=== PATIENT | female | born 1930 | race Two or more races ===

== ENCOUNTER 2017-03-13 11:07 | Outpatient (CLI) | payer OTHER | END 2017-03-13 15:26 | disposition home or self-care (01) | LOC: MRI 11:07 | DX: M51.14 Intervertebral disc disorders with radiculopathy, thoracic region (principal) | CPT/HCPCS: 72146 ==

== ENCOUNTER 2017-03-13 11:27 | Outpatient (CLI) | payer OTHER | END 2017-03-13 15:25 | disposition home or self-care (01) | LOC: RAD 11:27 | DX: M79.641 Pain in right hand (principal); M25.562 Pain in left knee ==

== ENCOUNTER → 2017-10-11 | Outpatient (CLI) | payer OTHER | END | disposition home or self-care (01) | LOC: NUCLEAR 10-04 08:00 | DX: I25.10 Atherosclerotic heart disease of native coronary artery without angina pectoris (principal) | CPT/HCPCS: 78452; 93017; A9500; J0153 ==

== ENCOUNTER 2017-11-12 12:07 | Outpatient (CLI) | payer OTHER | END 2017-11-12 12:30 | disposition home or self-care (01) | LOC: SONOGRAMA 12:07 | DX: E04.1 Nontoxic single thyroid nodule (principal) ==

== ENCOUNTER 2018-04-15 19:46 | Emergency (ER) | payer OTHER ==
[~2018-04-15] VITALS: Ht 162.6 cm; Wt 70.3 kg
[2018-04-15] MEDS ORDERED: ADULT ASPIRIN81 MG (20:16)
[2018-04-15] MEDS ORDERED: DEXILANT30 MG (20:17)
[2018-04-15] MEDS ORDERED: NORVASC2.5 M1 (20:17)
[2018-04-15] MEDS ORDERED: CLOPIDOGREL BIS75 MG (20:18)
[2018-04-15] MEDS ORDERED: SIMVASTATIN20 MG (20:18)
[2018-04-15] MEDS ORDERED: TOPROL XL50 M1 (20:19)
[2018-04-15] MEDS ORDERED: LOSARTAN-HCTZ1 EACH PO (23:36)
== END 2018-04-15 23:36 | disposition home or self-care (01) ==
LOC: ER 19:46
DX: I16.1 Hypertensive emergency (principal); I10 Essential (primary) hypertension; R51 Headache

== ENCOUNTER 2018-11-26 09:34 | Outpatient (CLI) | payer OTHER ==
[~2018-11-26 09:34] MED LIST: ADULT ASPIRIN81 MG; CLOPIDOGREL BIS75 MG; DEXILANT30 MG; LOSARTAN-HCTZ1 EACH PO; NORVASC2.5 M1; SIMVASTATIN20 MG; TOPROL XL50 M1
== END 2018-11-26 09:36 | disposition home or self-care (01) ==
LOC: RX STUDY 09:34
DX: K59.09 Other constipation (principal); K21.9 Gastro-esophageal reflux disease without esophagitis

== ENCOUNTER 2019-09-24 15:18 | Outpatient (CLI) | payer OTHER | END 2019-09-24 16:00 | disposition home or self-care (01) | LOC: OFIC 805 15:18 | PROVIDERS: ATTEND Otolaryngology | DX: R09.81 Nasal congestion (principal); J30.89 Other allergic rhinitis; S09.20XA Traumatic rupture of unspecified ear drum, initial encounter; H91.8X3 Other specified hearing loss, bilateral ==

== ENCOUNTER 2019-10-16 13:09 | Outpatient (CLI) | payer OTHER | END 2019-10-16 13:50 | disposition home or self-care (01) | LOC: OFIC 805 13:09 | PROVIDERS: ATTEND Otolaryngology | DX: J30.89 Other allergic rhinitis (principal); R09.81 Nasal congestion; H91.8X3 Other specified hearing loss, bilateral ==

== ENCOUNTER → 2020-02-05 | Outpatient (CLI) | payer OTHER | END | disposition home or self-care (01) | LOC: OFIC 805 14:30 | PROVIDERS: ATTEND Otolaryngology | DX: H61.23 Impacted cerumen, bilateral (principal); H90.3 Sensorineural hearing loss, bilateral; R09.81 Nasal congestion; J30.89 Other allergic rhinitis ==

== ENCOUNTER 2020-07-13 15:25 | Outpatient (CLI) | payer OTHER | END 2020-07-13 15:34 | disposition home or self-care (01) | LOC: RAD 15:25 | PROVIDERS: ATTEND General Practice | DX: M25.341 Other instability, right hand (principal); G56.01 Carpal tunnel syndrome, right upper limb ==

== ENCOUNTER 2020-08-04 13:57 | Outpatient (CLI) | payer OTHER | END 2020-08-04 14:03 | disposition home or self-care (01) | LOC: RAD 13:57 | DX: E04.2 Nontoxic multinodular goiter (principal); M77.9 Enthesopathy, unspecified; D21.22 Benign neoplasm of connective and other soft tissue of left lower limb, including hip; M25.775 Osteophyte, left foot; M85.89 Other specified disorders of bone density and structure, multiple sites; Z13.820 Encounter for screening for osteoporosis ==

== ENCOUNTER 2021-01-19 09:18 | Outpatient (CLI) | payer OTHER | END 2021-01-19 09:19 | disposition home or self-care (01) | LOC: NUCLEAR 09:18 | PROVIDERS: ATTEND Internal Medicine Cardiovascular Disease | DX: I65.23 Occlusion and stenosis of bilateral carotid arteries (principal) ==

== ENCOUNTER 2021-02-01 14:03 | Outpatient (CLI) | payer OTHER | END 2021-02-01 14:04 | disposition home or self-care (01) | LOC: NUCLEAR 14:03 | PROVIDERS: ATTEND Internal Medicine Endocrinology, Diabetes & Metabolism | DX: M85.89 Other specified disorders of bone density and structure, multiple sites (principal); Z13.820 Encounter for screening for osteoporosis ==

== ENCOUNTER 2021-05-06 10:03 | Outpatient (CLI) | payer OTHER | END 2021-05-06 10:04 | disposition home or self-care (01) | LOC: NUCLEAR 10:03 | PROVIDERS: ATTEND Internal Medicine Cardiovascular Disease | DX: I73.9 Peripheral vascular disease, unspecified (principal) ==

== ENCOUNTER 2021-07-06 14:59 | Outpatient (CLI) | payer OTHER | END 2021-07-06 15:05 | disposition home or self-care (01) | LOC: RAD 14:59 | PROVIDERS: ATTEND General Practice | DX: M79.672 Pain in left foot (principal) ==

== ENCOUNTER → 2021-07-18 | Outpatient (CLI) | payer OTHER | END | disposition home or self-care (01) | LOC: NUCLEAR 11:00 | DX: I73.9 Peripheral vascular disease, unspecified (principal); R60.0 Localized edema ==

== ENCOUNTER 2022-09-01 08:02 | Outpatient (CLI) | payer OTHER | END 2022-09-01 08:17 | disposition home or self-care (01) | LOC: TOM 08:02 | PROVIDERS: ATTEND Internal Medicine Cardiovascular Disease | DX: R91.8 Other nonspecific abnormal finding of lung field (principal) ==

== ENCOUNTER 2022-09-28 07:25 | Outpatient (CLI) | payer OTHER | END 2022-09-28 07:27 | disposition home or self-care (01) | LOC: NUCLEAR 07:25 | PROVIDERS: ATTEND Internal Medicine Pulmonary Disease | DX: R91.1 Solitary pulmonary nodule (principal) | CPT/HCPCS: 78816; A9552 ==